=== PATIENT | female | born 1995 | race African-American/Black ===

== ENCOUNTER 2022-06-14 19:43 | Emergency (ER) | payer SELFPAY ==
[~2022-06-14] VITALS: Ht 165.1 cm; Wt 60.1 kg
[2022-06-15 00:21] LABS: CLARITY URINE TURBID (CLEAR); COLOR URINE YELLOW (YELLOW); KETONES URINE TRACE (NEGATIVE); LEUKOCYTE ESTERASE URINE NEGATIVE (NEGATIVE); NITRITE URINE POSITIVE (NEGATIVE); OCCULT BLOOD URINE NEGATIVE (NEGATIVE); PH URINE 7.5 (4.5-8.0); PROTEIN URINE NEGATIVE (NEGATIVE)
[2022-06-15] MEDS ORDERED: HYDR-4001 MT (00:33)
[2022-06-15] MEDS ORDERED: CEPH500T MT (00:33)
[2022-06-15 00:34] VITALS: BP 131/101
[2022-06-15] MEDS: HYDROCODONE/ACETAMINOPHEN 5/325MG TABLET PO STA (00:34)
== END 2022-06-15 01:02 | disposition home or self-care (01) ==
LOC: ER 19:43
DX: M54.50 Low back pain, unspecified (principal); R10.9 Unspecified abdominal pain
CPT/HCPCS: 81003; 81025; 99283

== ENCOUNTER 2024-12-15 07:35 | Emergency (ER) | payer OTHER ==
[~2024-12-15] VITALS: Ht 170.2 cm; Wt 66.0 kg
[~2024-12-15 07:35] MED LIST: CEPH500T MT; HYDR-4001 MT
[2024-12-15 07:39] VITALS: O2SAT 99
[2024-12-15 07:47] VITALS: BP 109/73; PULSE 93; RESP 16; TEMP 37; O2SAT 100
[2024-12-15 08:16] LABS: CLARITY URINE CLEAR (CLEAR); COLOR URINE YELLOW (YELLOW); GLUCOSE URINE NEGATIVE (NEGATIVE); KETONES URINE TRACE (NEGATIVE); LEUKOCYTE ESTERASE URINE NEGATIVE (NEGATIVE); NITRITE URINE NEGATIVE (NEGATIVE); OCCULT BLOOD URINE 3+ (NEGATIVE); PROTEIN URINE TRACE (NEGATIVE); SPECIFIC GRAVITY URINE 1.028 (1.005-1.030)
[2024-12-15 08:28] LABS: BACTERIA URINE FEW; RBC URINE 50-100 /hpf (0-2); SQUAMOUS EPITHELIAL CELL URINE 1+ /lpf (RARE/1+); WBC URINE 0-2 /hpf (0-2); YEAST URINE NONE SEEN
[2024-12-15 08:32] LABS: BASOPHILS % 0.4 % (0.0-2.0); HEMATOCRIT. 39.5 % (36.0-48.0); HEMOGLOBIN. 13.3 g/dL (12.0-16.0); LYMPHOCYTES % 13.5 % (20.0-50.0); MEAN CORPUSCULAR HEMOGLOBIN 30.2 pg (28.0-32.0); MEAN CORPUSCULAR HGB CONC 33.7 g/dL (31.0-37.0); MEAN CORPUSCULAR VOLUME 89.4 fL (81.0-99.0); MEAN PLATELET VOLUME 9.2 fl (7.4-10.4); MONOCYTES % 12.9 % (2.0-8.0); NEUTROPHILS % 71.2 % (40.0-76.0); PLATELET 300 x1000/uL (130-400); RED BLOOD CELL COUNT 4.41 mill/uL (4.2-5.4); RED CELL DISTRIBUTION WIDTH 13.3 % (11.6-14.6); WHITE BLOOD COUNT 6.6 x1000/uL (4.5-11.0)
[2024-12-15 08:37] LABS: CHLORIDE 106 mEq/L (98-107); POTASSIUM 3.2 mEq/L (3.5-5.1); SODIUM 139 mEq/L (136-145)
[2024-12-15 08:38] LABS: CARBON DIOXIDE 23 mEq/L (21-32)
[2024-12-15 08:39] LABS: CALCIUM 9.1 mg/dL (8.7-10.4)
[2024-12-15 08:43] LABS: CREATININE 0.7 mg/dL (0.6-1.0); GLUCOSE 97 mg/dL (70-105); UREA NITROGEN BLOOD 9 mg/dL (9-23)
[2024-12-15 08:47] LABS: HCG SCREEN POSITIVE
[2024-12-15] MEDS: POTASSIUM CHLORIDE 20MEQ/PACKET PO NR (09:47)
[2024-12-15] MEDS ORDERED: PNV1TABL50 MT (10:48)
== END 2024-12-15 11:00 | disposition home or self-care (01) ==
LOC: ER 07:45
DX: O46.91 Antepartum hemorrhage, unspecified, first trimester (principal); Z3A.08 8 weeks gestation of pregnancy
CPT/HCPCS: 36415; 76801; 80048; 81003; 81025; 84702; 84703; 85025; 99284

== ENCOUNTER 2024-12-17 07:36 | Emergency (ER) | payer OTHER ==
[~2024-12-17] VITALS: Ht 170.2 cm; Wt 75.0 kg
[~2024-12-17 07:36] MED LIST changes: +PNV1TABL50 MT
[2024-12-17 07:44] VITALS: BP 127/86; PULSE 76; RESP 18; TEMP 36.9; O2SAT 100
[2024-12-17 08:52] LABS: BASOPHILS % 0.6 % (0.0-2.0); EOSINOPHILS % 0.7 % (0.0-5.0); HEMOGLOBIN. 12.9 g/dL (12.0-16.0); LYMPHOCYTES % 25.1 % (20.0-50.0); MEAN CORPUSCULAR HGB CONC 33.9 g/dL (31.0-37.0); MEAN CORPUSCULAR VOLUME 91.5 fL (81.0-99.0); MEAN PLATELET VOLUME 9.2 fl (7.4-10.4); MONOCYTES % 14.2 % (2.0-8.0); NEUTROPHILS % 59.4 % (40.0-76.0); PLATELET 270 x1000/uL (130-400); RED BLOOD CELL COUNT 4.15 mill/uL (4.2-5.4); RED CELL DISTRIBUTION WIDTH 13.3 % (11.6-14.6); WHITE BLOOD COUNT 5.4 x1000/uL (4.5-11.0)
== END 2024-12-17 12:58 | disposition home or self-care (01) ==
LOC: ER 07:36
DX: O20.9 Hemorrhage in early pregnancy, unspecified (principal); O26.891 Other specified pregnancy related conditions, first trimester; Z3A.01 Less than 8 weeks gestation of pregnancy
CPT/HCPCS: 36415; 84702; 85025; 99283